=== PATIENT | male | born 1965 | race Caucasian/White ===

== ENCOUNTER 2020-01-18 13:26 | Emergency (ER) | payer OTHER, SELFPAY ==
[2020-01-18 13:30] VITALS: BP 122/96; PULSE 92; RESP 18; TEMP 36.6; O2SAT 99
[2020-01-18 13:57] LABS: Basophils Percent Auto 0.2 % (0.2-1.2); Eosinophils Absolute Auto 0.1 K/mm3 (0-0.3); Eosinophils Percent Auto 2.3 % (0-4.4); Hematocrit 44.3 % (42.0-52.0); Hemoglobin 15.6 g/dL (14.0-18.0); Immature Granulocyte Absolute 0.01 K/mm3 (0.00-0.031); Immature Granulocyte Percent A 0.2 % (0-0.5); Lymphocytes Absolute Auto 1.06 K/mm3 (0.9-3.2); Lymphocytes Percent Auto 24.1 % (18.3-44.2); Mean Corpuscular HGB Conc 35.2 g/dl (32-36); Mean Corpuscular Hemoglobin 31.5 pg (26-34); Mean Corpuscular Volume 89.5 fl (80-100); Mean Platelet Volume 9.3 fl (7.4-10.4); Monocytes Absolute Auto 0.3 K/mm3 (0.1-0.6); Monocytes Percent Auto 7.3 % (2.6-8.5); Neutrophils Absolute Auto 2.9 K/mm3 (1.3-6.7); Neutrophils Percent Auto 65.9 % (45.5-73.1); Platelet Count Result 165 k/mm3 (150-375); Red Blood Count 4.95 M/mm3 (4.6-6.20); Red Cell Distribution Width 12.8 % (11.5-14.5); White Blood Count 4.4 K/mm3 (4.5-10.0)
[2020-01-18 14:09] LABS: Anion Gap 7 mmol/L (8-16); Blood Urea Nitrogen 13 mg/dL (9-20); Calcium 8.7 mg/dL (8.4-10.2); Carbon Dioxide 24 mmol/L (22-30); Chloride 105 mmol/L (98-107); Estimated CRCL calculation 108 ml/min; Estimated Glomerular Filt Rate > 60; Glucose 91 mg/dL (75-110); Potassium 3.7 mmol/L (3.4-5.0); Sodium 136 mmol/L (137-145)
--- NOTE | 2020-01-18 15:48 | ED.GENADULT ---
HPI - General Adult General Chief complaint: Unspecified <Dyllan Oconnell PA-C - Last Filed: 01/18/20 15:51> Stated complaint: multiple complaints <Dyllan Oconnell PA-C - Last Filed: 01/18/20 15:51> Time Seen by Provider: 01/18/20 14:42 <Dyllan Oconnell PA-C - Last Filed: 01/18/20 15:51> Source: patient <Dyllan Oconnell PA-C - Last Filed: 01/18/20 15:51> Mode of arrival: ambulatory <Dyllan Oconnell PA-C - Last Filed: 01/18/20 15:51> Limitations: no limitations <Dyllan Oconnell PA-C - Last Filed: 01/18/20 15:51> History of Present Illness HPI narrative: Patient is a 54-year-old male who presents to emergency department for evaluation fatigue and lack of sleep over the course of the last couple of weeks patient also notes he has been having a tremor. Patient was seen by primary care for this started on anxiety as he is had trouble sleeping and stress related to going through divorce. Patient denies any physical symptoms otherwise at this time and presents per private vehicle in no distress patient denies similar occurrence in the past <Dyllan Oconnell PA-C - Last Filed: 01/18/20 15:51> Related Data Home medications: Home Medications Medication Instructions Recorded Confirmed escitalopram oxalate mg 01/18/20 minocycline 01/18/20 rivaroxaban [Xarelto] mg 01/18/20 <Dyllan Oconnell PA-C - Last Filed: 01/18/20 15:51> Allergies/adverse reactions: Allergies Allergy/AdvReac Type Severity Reaction Status Date / Time No Known Allergies Allergy Verified 01/18/20 14:40 <Dyllan Oconnell PA-C - Last Filed: 01/18/20 15:51> Review of Systems Review of Systems: All systems reviewed & are unremarkable except as noted in HPI and below <Dyllan Oconnell PA-C - Last Filed: 01/18/20 15:51> PMFSH Past Medical History Medical History: Medical History (Updated 01/18/20 @ 15:51 by Dyllan Oconnell PA-C) Pulmonary embolus <OSKAR Abel Last Filed: 01/18/20 15:51> Social History Social History: Social History Smoking status: Former smoker Alcohol intake: never <Dyllan Oconnell PA-C - Last Filed: 01/18/20 15:51> Exam Narrative: Exam Narrative: GENERAL: Well-appearing, well-nourished, and in no acute distress. HEAD: Normocephalic, atraumatic. EYES: PERRLA and EOMI. ENT: Nares clear, no rhinorrhea or epistaxis. Mucous membranes moist. CHEST: Clear to auscultation. No respiratory distress. No wheezes rales or rhonchi HEART: Regular rate and rhythm. No murmur heard. Normal peripheral pulses. ABDOMEN: Soft, nontender, nondistended EXTREMITIES: Normal range of motion. No edema. SKIN: Warm, dry, no rash. NEURO: No focal deficits. Alert and oriented x3. PSYCH: Normal mood and affect. <Dyllan Oconnell PA-C - Last Filed: 01/18/20 15:51> Course Course Emergency Course: Patient in the room in no distress normal vital signs no high risk changes in the blood work advised to continue to follow with primary care patient denies any pain or other complaints felt appropriate for outpatient reevaluation <Dyllan Oconnell PA-C - Last Filed: 01/18/20 15:51> Vital Signs Vital signs: Vital Signs Temperature 97.9 F 01/18/20 13:30 Pulse Rate 92 01/18/20 13:30 Respiratory Rate 18 01/18/20 13:30 Blood Pressure 122/96 H 01/18/20 13:30 Pulse Oximetry 99 01/18/20 13:30 Temperature 97.9 F 01/18/20 13:30 Pulse Rate 76 01/18/20 16:06 Respiratory Rate 14 01/18/20 16:06 Blood Pressure 126/81 01/18/20 16:06 Pulse Oximetry 100 01/18/20 16:06 <Dyllan Oconnell PA-C - Last Filed: 01/18/20 15:51> Vital Signs Temperature 97.9 F 01/18/20 13:30 Pulse Rate 92 01/18/20 13:30 Respiratory Rate 18 01/18/20 13:30 Blood Pressure 122/96 H 01/18/20 13:30 Pulse Oximetry 99 01/18/20 13:30 Temperature 97.9 F
[2020-01-18 16:06] VITALS: BP 126/81; PULSE 76; RESP 14; O2SAT 100
== END 2020-01-18 16:07 | disposition home or self-care (01) ==
PROVIDERS: Emergency Provider General Practice; PCP Internal Medicine
DX: R53.83 Other fatigue (principal)
CPT/HCPCS: 36415; 80048; 85025; 99283

== ENCOUNTER 2021-02-14 10:32 | Outpatient (CLI) | payer OTHER, SELFPAY ==
[2021-02-14 11:06] LABS: Urine Cotinine NEGATIVE
== END 2021-02-14 10:33 | disposition home or self-care (01) ==
LOC: ANHLAB 10:35
PROVIDERS: PCP Internal Medicine; Visit Provider Orthopaedic Surgery
DX: Z72.0 Tobacco use (principal); Z86.711 Personal history of pulmonary embolism
CPT/HCPCS: 80307

== ENCOUNTER 2023-08-08 11:23 | Outpatient (CLI) | payer OTHER, SELFPAY ==
--- NOTE | ~2023-08-08 | XR_ITS ---
EXAM: XR foot LT 2V DATE: 08/08/2023 11:45 HISTORY: M72.2 - Plantar fascial fibromatosis . COMPARISON: None available. FINDINGS: Normal mineralization. No fracture or dislocation. No lytic or blastic lesion. Degenerativ e change at the second DIP joint and first MTP joint. There is minimal plantar enthesopathy. No erosi on or periosteal change. Soft tissues within normal limits. IMPRESSION: No acute osseous finding in the left foot. Minimal plantar enthesopathy. Reviewed, dictated and finalized at location K. IMPRESSION: No acute osseous finding in the left foot. Minimal plantar enthesop athy.
[2023-08-08 12:07] LABS: Hemoglobin 16.2 g/dL (14.0-18.0); Mean Corpuscular HGB Conc 34.5 g/dl (32-36); Mean Corpuscular Hemoglobin 31.4 pg (26-34); Mean Corpuscular Volume 91.1 fl (80-100); Platelet Count Result 134 k/mm3 (150-375); Red Blood Count 5.16 M/mm3 (4.6-6.20); Red Cell Distribution Width 13.2 % (11.5-14.5); White Blood Count 3.9 K/mm3 (4.5-10.0)
[2023-08-08 12:22] LABS: Alanine Aminotransferase 25 U/L (6-50); Albumin Level 4.3 g/dL (3.5-5.1); Alkaline Phosphatase 53 U/L (38-126); Anion Gap 5 mmol/L (8-16); Aspartate Amino Transferase 30 U/L (17-59); Bilirubin,Total 1.2 mg/dL (0.2-1.3); Blood Urea Nitrogen 17 mg/dL (9-20); Calcium 9.1 mg/dL (8.4-10.2); Carbon Dioxide 28 mmol/L (22-30); Chloride 108 mmol/L (98-107); Cholesterol 209 mg/dL (0-200); Estimated Glomerular Filt Rate > 60; Glucose 100 mg/dL (65-110); HDL Direct 44 mg/dL; Potassium 4.3 mmol/L (3.4-5.0); Sodium 141 mmol/L (137-145); Triglycerides 109 mg/dL (<150); Uric Acid 7.9 mg/dL (3.5-8.5)
[2023-08-08 12:34] LABS: LDL Cholesterol Direct 139 mg/dL
[2023-08-08 12:54] LABS: Prostate Specific Antigen 0.6 ng/mL (< OR = 4.0)
== END 2023-08-08 11:24 | disposition home or self-care (01) ==
LOC: ANHLAB 11:24
PROVIDERS: PCP Emergency Medicine; Visit Provider Emergency Medicine
DX: R53.83 Other fatigue (principal); E78.5 Hyperlipidemia, unspecified; E55.9 Vitamin D deficiency, unspecified; M10.9 Gout, unspecified; Z12.5 Encounter for screening for malignant neoplasm of prostate; E03.9 Hypothyroidism, unspecified; M72.2 Plantar fascial fibromatosis
CPT/HCPCS: 36415; 73620; 80053; 80061; 82306; 84153; 84443; 84550; 85027; G0103

== ENCOUNTER 2024-03-01 15:26 | Outpatient (CLI) | payer OTHER, SELFPAY ==
--- NOTE | ~2024-03-01 | XR_ITS ---
Left Hand Technique: PA and lateral views were obtained. Clinical History: Pain Findings: No acute fracture or dislocation is seen. Osseous alignment is anatomic. Joint spaces are p reserved. Soft tissues are unremarkable. Impression: Unremarkable left hand. Reviewed, dictated and finalized at location M. Impression: Unremarkable left hand.
--- NOTE | ~2024-03-01 | XR_ITS ---
Right Hand Technique: PA and lateral views were obtained. Clinical History: Pain Findings: No acute fracture or dislocation is seen. Osseous alignment is anatomic. Joint spaces are p reserved. Soft tissues are unremarkable. Impression: Unremarkable right hand. Reviewed, dictated and finalized at location M. Impression: Unremarkable right hand.
== END 2024-03-01 15:27 | disposition home or self-care (01) ==
PROVIDERS: PCP Emergency Medicine; Visit Provider Emergency Medicine
DX: M79.641 Pain in right hand (principal); M79.642 Pain in left hand
CPT/HCPCS: 73120

== ENCOUNTER 2024-03-16 13:54 | Emergency (ER) | payer OTHER, SELFPAY ==
--- NOTE | ~2024-03-16 | CT_ITS ---
CT brain wo con Ordering provider: Brit Mcmullen III, DO History: 59 years Male with . dizziness . Comparison: None. Technique: CT of the head without contrast. Radiation reduction technique utilized.The dose-length product was 681 mGy-cm. FINDINGS: BRAIN PARENCHYMA AND CSF SPACES: No midline shift, mass effect or hemorrhage. The brain parenchyma a nd CSF spaces are otherwise normal. VISUALIZED PARANASAL SINUSES: Right maxillary and left ethmoid sinus disease. MASTOIDS: Well aerated. BONES: The bones appear intact. SOFT TISSUES: Visualized nasopharynx is normal. Superficial soft tissues are normal. IMPRESSION: No acute intracranial findings. Reviewed, dictated and finalized at location A.
[2024-03-16 13:59] VITALS: BP 127/87; PULSE 88; RESP 16; TEMP 36.6; O2SAT 100
--- NOTE | 2024-03-16 13:59 | ECG_ITS ---
Test Date: 2024-03-16 14:05:23 Measurements Intervals [place] Rate: 79 P: 59 SD: 147 QRS: 42 QRSD: 88 T: 21 QT: 353 QTc: 405 Interpretive Statements SINUS RHYTHM POSSIBLE LEFT ATRIAL ENLARGEMENT [-0.1mV P WAVE IN V1/V2] INCOMPLETE RIGHT BUNDLE BRANCH BLOCK No previous ECG available for comparison Electronically Signed On 03-17-2024 09:35:21 CDT by Salma Choudhury M.D.
--- NOTE | 2024-03-16 14:07 | ED_ITS ---
HPI - Dizziness General Chief Complaint: Dizziness Stated Complaint: dizzy when woke up Time Seen by Provider: 03/16/24 14:22 Pt awoke with dizziness like room spinning at this morning. Pt denies RAI or blurred vision or recent URI. Pt denies ear pain. Pt says is better when still and worse when he moves head. Gen alert and oriented x 3 NAD Heent atraumatic normocephalic N/T clear Neck supple CV RRR without M Lungs CTAB Abd Soft NTND + BS Neuro CN 2-12 intact. Strength 5/5 no sensory def more dizzy with head movement better when still History of Present Illness HPI Narrative: as per MSE above (done by me) Related Data Allergies Allergy/AdvReac Type Severity Reaction Status Date / Time No Known Allergies Allergy Verified 03/01/24 14:55 Review of Systems Review of Systems: All systems reviewed & are unremarkable except as noted in HPI and below PMFSH Past Medical History Medical History Closed dislocation of finger Dislocation closed, finger Fatigue Pulmonary embolus Spleen enlarged Surgical History Surgical History History of total left knee replacement Social History Social History (Updated 03/01/24 @ 15:07 by Jen Hernandez) Smoking status: Former smoker Alcohol intake: current Drinks per week: 21 Alcohol use details: 3 beers per day Substance use: never Do You Feel Safe in your Home?: Yes Lack of Transportation: No Lack of Food: Never True Current Housing: I Have Housing Concerned About Future Housing: No Difficulty Paying Gas/Electric Bills: No Difficulty Paying for Meds: No Currently Unemployed: No Education: Trade/Vocational Certificate Difficulty w/ Childcare or Family Care: No Exam Const: General: healthy appearing and no acute distress Nutritional Appearance: well nourished Orientation/consciousness: patient oriented x3 Limitations: no limitations HENMT: Head: normal to inspection Ears: TM's normal bilaterally Mouth: Yes Normal oral and palatal mucosa present Eyes: Conjunctivae: conjunctivae normal Pupils: Equal, round and reactive pupils present EOM: EOMs intact bilaterally Neck: Neck: normal visual inspection Resp: Effort & Inspection: normal respiratory effort Auscultation: clear to auscultation bilaterally Cardio: Rate: regular rate Rhythm: regular rhythm GI: GI Palp: Yes Soft to palpation and No Tenderness to palpation present (GI) Auscultation: normal bowel sounds Skin: General skin exam: normal color Rashes: no rashes Wounds: no wounds Neuro: General: patient oriented x3, moves all extremities, no meningeal signs, no focal motor deficits and CN's II-XI intact bilaterally Cranial nerves: Yes Nystagmus not present Speech: normal speech Other: dizziness reproduced with movement of head and betteer when still Extrem: General: normal to inspection, no clubbing, cyanosis or edema and no pedal edema Psych: Mental Status: mental status grossly normal Affect: normal affect Attitude: cooperative Course Vital Signs Vital signs: Vital Signs Temperature 98 F 03/16/24 13:59 Pulse Rate 88 03/16/24 13:59 Respiratory Rate 16 03/16/24 13:59 Blood Pressure 127/87 03/16/24 13:59 Pulse Oximetry 100 03/16/24 13:59 Temperature 98.0 F 03/16/24 17:24 Pulse Rate 68 03/16/24 17:24 Respiratory Rate 14 03/16/24 17:24 Blood Pressure 128/84 03/16/24 17:24 Pulse Oximetry 100 03/16/24 17:24 Oxygen Delivery Room Air 03/16/24 15:01 MDM - Dizziness MDM Narrative Medical decision making narrative: seems like vertigo, will get ct and labs to be safe and give some antivert. CT and labs neg. Pt still dizzy after antivert. will give dose of valium. Pt much better now. Got up and walked and says feels better. home on antivert and valium Differential Diagnosis Differential diagnosis: Likely benign paroxysmal positional vertigo, vertebral basilar insufficiency, cerebrovascular accident and acute vestibular neuronitis Lab Data 03/16/24 15:17 03/16/24 15:17 Labs: Lab Results 03/16/24 Range/Units 15:17 WBC 4.3 L (4.5-10.0) K/mm3 RBC 5.09 (4.6-6.20) M/mm3 Hgb 16.4 (14.0-18.0) g/dL Hct 46.8 (42.0-52.0) % MCV 91.9 (80-100) fl MCH 32.2 (26-34) pg MCHC 35.0 (32-36) g/dl RDW 13.0 (11.5-14.5) % Plt Count 129 L (150-375) k/mm3 MPV 8.9 (7.4-10.4) fl Immature Gran % (Auto) 0.2 (0-0.5) % Neut % (Auto) 64.7 (45.5-73.1) % Lymph % (Auto) 20.7 (18.3-44.2) % [place] % (Auto) 9.8 H (2.6-8.5) % Eos % (Auto) 4.4 (0-4.4) % Baso % (Auto) 0.2 (0.2-1.2) % Lymph # (Auto) 0.89 L (0.9-3.2) K/mm3 [place] # (Auto) 0.4 (0.1-0.6) K/mm3 Eos # (Auto) 0.2 (0-0.3) K/mm3 Baso # (Auto) 0.0 (0.0-0.1) K/mm3 Abs Immat Gran (auto) 0.01 (0.00-0.031) K/mm3 Absolute Neuts (auto) 2.8 (1.3-6.7) K/mm3 Absolute Nucleated RBC 0.000 (0.0-0.012) K/mm3 Nucleated RBC % 0.0 (0.0-0.2) % Sodium 137 (137-145) mmol/L Potassium 4.1 (3.4-5.0) mmol/L Chloride 107 (98-107) mmol/L Carbon Dioxide 24 (22-30) mmol/L Anion Gap 6 (4-12) mmol/L BUN 16 (9-20) mg/dL Creatinine 0.90 (0.7-1.3) mg/dL Estim Creat Clear Calc 91 ml/min Estimated GFR > 60 (59 - ) Glucose 100 (65-110) mg/dL Calcium 9.0 (8.4-10.2) mg/dL Total Bilirubin 1.5 H (0.2-1.3) mg/dL AST 30 (17-59) U/L ALT 30 (6-50) U/L Alkaline Phosphatase 53 (38-126) U/L Total Protein 8.0 (6.3-8.2) g/dL Albumin 4.4 (3.5-5.1) g/dL Discharge Plan Discharge Clinical Impression: Vertigo Patient Disposition: Home, Self-Care Condition: Improved Instructions: Antibiotic Form, Vertigo (ED) Prescriptions: New meclizine [Antivert] 50 mg tablet 50 mg PO QID Qty: 30 0RF diazepam [Valium] 5 mg tablet 5 mg PO TID PRN (Reason: vertigo) Qty: 14 0RF No Action Xarelto 20 mg tablet 20 mg PO DAILY Qty: 90 3RF Follow-up/Referrals: Rudolph Sommers MD [Primary Care Provider] - Stand Alone Forms: Work/School Release IP
[2024-03-16 15:01] VITALS: BP 126/86; PULSE 65; RESP 16; TEMP 36.6; O2SAT 98
[2024-03-16] MEDS: MECLIZINE HCL 25 MG TABLET 50 MG PO (15:18)
[2024-03-16 15:23] VITALS: PULSE 63
[2024-03-16 15:26] LABS: Basophils Percent Auto 0.2 % (0.2-1.2); Eosinophils Absolute Auto 0.2 K/mm3 (0-0.3); Eosinophils Percent Auto 4.4 % (0-4.4); Hematocrit 46.8 % (42.0-52.0); Hemoglobin 16.4 g/dL (14.0-18.0); Immature Granulocyte Absolute 0.01 K/mm3 (0.00-0.031); Immature Granulocyte Percent A 0.2 % (0-0.5); Lymphocytes Absolute Auto 0.89 K/mm3 (0.9-3.2); Lymphocytes Percent Auto 20.7 % (18.3-44.2); Mean Corpuscular Hemoglobin 32.2 pg (26-34); Mean Corpuscular Volume 91.9 fl (80-100); Mean Platelet Volume 8.9 fl (7.4-10.4); Monocytes Absolute Auto 0.4 K/mm3 (0.1-0.6); Monocytes Percent Auto 9.8 % (2.6-8.5); Neutrophils Absolute Auto 2.8 K/mm3 (1.3-6.7); Neutrophils Percent Auto 64.7 % (45.5-73.1); Platelet Count Result 129 k/mm3 (150-375); Red Blood Count 5.09 M/mm3 (4.6-6.20); White Blood Count 4.3 K/mm3 (4.5-10.0)
[2024-03-16 15:39] LABS: Alanine Aminotransferase 30 U/L (6-50); Albumin Level 4.4 g/dL (3.5-5.1); Alkaline Phosphatase 53 U/L (38-126); Anion Gap 6 mmol/L (4-12); Aspartate Amino Transferase 30 U/L (17-59); Bilirubin,Total 1.5 mg/dL (0.2-1.3); Blood Urea Nitrogen 16 mg/dL (9-20); Carbon Dioxide 24 mmol/L (22-30); Chloride 107 mmol/L (98-107); Estimated CRCL calculation 91 ml/min; Estimated Glomerular Filt Rate > 60; Glucose 100 mg/dL (65-110); Potassium 4.1 mmol/L (3.4-5.0); Sodium 137 mmol/L (137-145)
[2024-03-16] MEDS: diazePAM (*CRX) 5 MG TABLET PO (16:17)
[2024-03-16 16:18] VITALS: BP 137/86; PULSE 75; RESP 18; TEMP 36.8; O2SAT 100
[2024-03-16 17:24] VITALS: BP 128/84; PULSE 68; RESP 14; TEMP 36.7; O2SAT 100
== END 2024-03-16 17:25 | disposition home or self-care (01) ==
PROVIDERS: Emergency Provider Emergency Medicine; PCP Emergency Medicine
DX: R42 Dizziness and giddiness (principal); Z96.652 Presence of left artificial knee joint; Z86.711 Personal history of pulmonary embolism; Z87.891 Personal history of nicotine dependence; Z79.01 Long term (current) use of anticoagulants; I45.10 Unspecified right bundle-branch block; R94.31 Abnormal electrocardiogram [ECG] [EKG]
CPT/HCPCS: 36415; 70450; 80053; 85025; 93005; 99284; A9270

== ENCOUNTER 2024-07-29 14:49 | Outpatient (RCR) | payer OTHER, SELFPAY ==
--- NOTE | 2024-07-29 15:53 | OTOPEVAL1 ---
Assessment and note entered by Ricky Chopra, FITZ/Rashmi, CHRIS OT Evaluation Information 07/29/24 Assessment Status Evaluation Diagnosis M79.641 Pain in right hand Subjective Information Patient reports right hand pain for about 6-12 months. He is right handed. Reports pain with forceful gripping, unable to open a jar with the right hand. 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 Pain when fingers are pushed into extension. He reports when he has a prolonged chainstitch sewing machine operator on an object he has a difficult time releasing the fingers. 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 He denies any trauma to the hand. X-rays are negative. EMG was negative. Reported Pain Level Pain Score 0: Self Report Additional Pain Score Comments Walking in, 0/10 pain Lumbrical exercise 5/10 Throughout his work day his pain can get up to 9/10 Assessment OT Clinical Summary Patient referred to OT with right hand pain. Signs and symptoms are consistent with intrinsic strain . He denies numbness/tingling. Pain especially with intrinsic muscle activation - lumbricals and interossei. Educated on use of heat, ice, compression, ROM, and activity modification. Continued follow up indicated to progress HEP, continued use of modalities, manual therapy, and therapeutic exercises/activities. Plan of Care Interventions Therapeutic Exercise,Manual Therapy,Therapeutic Activities,Hot Pack/Cold Pack,Ultrasound,Paraffin OT Services Indicated Yes Treatment Frequency and 1x/week for 5 visits Duration These treatments will address the objective and functional deficits as defined above. The patient will be advanced safely and appropriately in order for the patient to progress towards his/her prior level of function. Additional exercises will be introduced and as well as a comprehensive home exercise program upon discharge, if needed, ?to ensure carryover of functional gains achieved in the clinic. This treatment plan has been reviewed and agreement upon by the patient.
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
--- NOTE | 2024-08-04 15:04 | PCOTNOTE ---
Patient did not show up for scheduled appointment this date. Patient was called and message was left on the primary phone.
--- NOTE | 2024-08-23 15:31 | PCOTNOTE ---
Patient No Called No Showed for his 3rd time. Patient was contacted and voicemail was left notifying the patient he will be discharged in accordance with the attendance policy.
--- NOTE | 2024-08-26 10:34 | OTOPDC ---
Assessment and note entered by FITZ Estrada/Rashmi, T Discharge Notification 08/26/24 OT Clinical Summary - Patient referred to OT with right hand pain. Signs and symptoms are consistent with intrinsic strain. He denies numbness/tingling. Pain especially with intrinsic muscle. - Educated on use of heat, ice, compression, ROM, and activity modification. - Patient no showed for 3 consecutive appointments after the initial evaluation and we have been unable to get a hold of him. D/C due to poor attendance.
== END 2024-08-26 11:56 | disposition home or self-care (01) ==
LOC: ANHOT 14:49
PROVIDERS: PCP Emergency Medicine; Visit Provider Emergency Medicine
DX: M79.641 Pain in right hand (principal)
CPT/HCPCS: 97018; 97110; 97165

== ENCOUNTER 2024-10-02 13:05 | Emergency (ER) | payer OTHER, SELFPAY ==
--- NOTE | 2024-10-02 13:07 | ED.BACK ---
HPI - Back Pain/Injury General Chief Complaint: Back Pain/Injury Stated Complaint: Back Pain Time Seen by Provider: 10/02/24 13:18 Source: patient, RN notes reviewed and old records reviewed Mode of arrival: ambulatory Limitations: no limitations History of Present Illness HPI Narrative: 59-year-old male presents to the [facility] with complaints right lower back pain since yesterday. Has tried topicals. Has taken Tylenol. Has a pain patch on. Using crutches to assist with walking. Patient reports yesterday he was mowing his grass on a riding lawnmower, got off to move a chair and his Back went out. Denies any numbness or tingling in extremities. Denies loss retention of bowel or bladder. Denies abdominal pain. No CVA tenderness. Denies midline tenderness Denies any significant injury Related Data Allergies Allergy/AdvReac Type Severity Reaction Status Date / Time No Known Allergies Allergy Verified 10/02/24 13:06 Review of Systems Review of Systems: All systems reviewed & are unremarkable except as noted in HPI and below Constitutional: Constitutional: Reports no additional constitutional complaints ENT: Reports system reviewed and no additional complaints, except as documented Cardiovascular: Cardiovascular: Reports no additional cardiovascular complaints, Denies chest pain and Denies dyspnea Respiratory: Respiratory: Reports no additional respiratory complaints, Denies chest congestion, Denies cough and Denies dyspnea Musculoskeletal: Musculoskeletal: Reports as per HPI and Reports back pain Integumentary/Breasts: Skin/Breast: Reports system reviewed and no additional complaints, except as docu PMFSH Past Medical History Medical History Rosacea Dental abscess Spleen enlarged Dislocation closed, finger Closed dislocation of finger Fatigue Pulmonary embolus Surgical History Surgical History H/O elbow surgery History of total left knee replacement Social History Social History Smoking status: Former smoker Alcohol intake: current Drinks per week: 21 Alcohol use details: 3 beers per day Substance use: never Do You Feel Safe in your Home?: Yes Lack of Transportation: No Lack of Food: Never True Current Housing: I Have Housing Concerned About Future Housing: No Difficulty Paying Gas/Electric Bills: No Difficulty Paying for Meds: No Currently Unemployed: No Education: Trade/Vocational Certificate Difficulty w/ Childcare or Family Care: No Comments At the time of my signature, I reviewed and agree with the nursing past medical, surgical, social, and family history. There is no relevant family history pertinent to the patient complaint. Exam Const: General: cooperative, no acute distress, well developed, alert, uncomfortable and well nourished Nutritional Appearance: well nourished Orientation/consciousness: patient oriented x3 Limitations: no limitations HENMT: Head: normal to inspection Eyes: General: appearance normal, both eyes and all related structures Alignment and Position: alignment normal Neck: Neck: normal visual inspection, full ROM, no lymphadenopathy and no meningeal signs Chest: Chest palpation & inspection: normal inspection of the chest Resp: Effort & Inspection: normal respiratory effort and able to speak in complete sentences Cardio: Rate: regular rate GI: GI Palp: No abdominal tenderness : General: Yes no CVA tenderness Back/Spine/Pelvis: Back: No mass, No erythema, No warmth, No ecchymosis and back tenderness (right lower ) Cervical Spine: normal cervical lordosis, cervical ROM normal, No cervical muscular tenderness and No Cervical spine tenderness Thoracic/Lumbar Spine: thoracic and lumbar spine normal to inspection, paraspinal muscle tenderness on the right in the mid lumbar and in the lower lumbar, No thoracic spinal tenderness and No lumbar spinal tenderness Pelvis: no pain with anterior-posterior compression and no pain with lateral compression Sacroiliac joints: bilaterally nontender Back/spine/pelvis image:  1. reports with pain with movement. NO rash noted. No erythema, ecchymosis. No midline tenderness. No swelling Skin: General skin exam: normal color and no rashes or lesions noted Neuro: General: patient oriented x3, moves all extremities and no meningeal signs Cognition (Neuro): normal cognition Speech: normal speech Gait exam (Neuro): Assistive device used (crutches) Extrem: General: normal to inspection, full ROM and capillary refill normal Psych: Appearance: grossly normal and well kempt Mental Status: mental status grossly normal Speech and movement: Normal speech and movement present and Clear speech present Affect: normal affect Attitude: cooperative Course Course Level of Care: Express Care Visit Vital Signs Vital signs: Vital Signs Temperature 98.4 F 10/02/24 13:16 Pulse Rate 82 10/02/24 13:16 Respiratory Rate 18 10/02/24 13:16 Blood Pressure 129/79 10/02/24 13:16 Pulse Oximetry 100 10/02/24 13:16 Oxygen Delivery Room Air 10/02/24 13:16 Temperature 98.4 F 10/02/24 13:16 Pulse Rate 82 10/02/24 13:16 Respiratory Rate 18 10/02/24 13:16 Blood Pressure 129/79 10/02/24 13:16 Pulse Oximetry 100 10/02/24 13:16 Oxygen Delivery Room Air 10/02/24 13:16 Reviewed MDM - Back Pain/Injury MDM Narrative Medical decision making narrative: Patient standing in exam room. Patient reports right lower back pain since yesterday. Denies any red flag symptoms. Exam consistent with lumbar strain. No trauma. Discussed prescribing prednisone, patient declined at this time. Does not want to take a steroid. Patient appropriate for outpatient treatment with close follow-up. Discussed signs and symptoms to proceed to the emergency room in the importance of following up with primary care provider Discharge instructions reviewed with patient, as well as provided in writing per nursing staff. The instructions also include specific and strict return/GO TO THE ER as well as f/u information. All questions have been answered, and the patient deny any further questions with discharge and discharge plan. Some parts of this dictation were generated by voice recognition software and may contain typographical and/or grammatical inaccuracies. Differential Diagnosis Differential diagnosis: Likely lumbar radiculopathy, sciatica and strain of lumbar region Critical Care Time Critical Care Time Critical Care Time: No Discharge Plan Discharge Clinical Impression: Right lumbar pain Patient Disposition: Home Condition: Stable Instructions: Low Back Strain (ED), Acute Low Back Pain (ED), Lower Back Exercises (ED) Additional Instructions: Take Tylenol as needed for pain Take Baclofen (muscle relaxer) as directed. Do not drink, drive, operate machinery, or do anything dangerous while taking this medication Exercise:Combine aerobic exercise, like walking or swimming, with specific exercises to keep the muscles in your back and abdomen strong and flexible. Proper Lifting:Be sure to lift heavy items with your legs, not your back. Do not bend over to pick something up. Keep your back straight and bend at your knees. Weight:Maintain a healthy weight. Being overweight puts added stress on your lower back. Avoid Smoking:Both the smoke and the nicotine cause your spine to age faster than normal. Proper Posture:Good posture is important for avoiding future problems. A therapist can teach you how to safely stand, sit, and lift. Use warm moist heat to help with pain. Using topical such as Biofreeze, Kojo-Jean or Aspercreme can also help Follow up with Primary provider in 2-3 days, This may become a chronic condition and they will be the one to help manage your pain and order additional testing. Go to the nearest ER if you develop problems with bladder/bowel function, weakness or loss of feeling in one or both of your legs. Patient Language: Lithuanian Prescriptions: New baclofen 10 mg tablet 10 mg PO TID PRN (Reason: muscle pain) Qty: 15 0RF lidocaine [Lidoderm] 5 % adhesive patch,medicated 1 patch topical DAILY Qty: 15 0RF Rx Instructions: leave on most painful area for up to 12 hrs No Action Xarelto 20 mg tablet See Rx Instructions .ROUTE .COMPLEX Qty: 90 2RF Dose Instruction: Take 1 tablet by mouth once daily Rx Instructions: Take 1 tablet by mouth once daily Follow-up/Referrals: Rudolph Sommers MD [Primary Care Provider] - 1 Week (express care follow up ) Stand Alone Forms: Work/School Release IP Time of Disposition: 13:27
[2024-10-02 13:16] VITALS: BP 129/79; PULSE 82; RESP 18; TEMP 36.9; O2SAT 100
== END 2024-10-02 13:30 | disposition home or self-care (01) ==
PROVIDERS: Emergency Provider Nurse Practitioner; PCP Emergency Medicine
DX: M54.50 Low back pain, unspecified (principal); L71.9 Rosacea, unspecified; Z86.711 Personal history of pulmonary embolism; Z96.652 Presence of left artificial knee joint; Z87.891 Personal history of nicotine dependence
CPT/HCPCS: 99213; G0463

== ENCOUNTER 2024-10-23 18:45 | Emergency (ER) | payer OTHER, SELFPAY ==
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
--- OUTSIDE RECORDS SUMMARY | 2024-10-23 18:47 | XMS_ITS | Encounter Summary ---
Author Organization [facility] Address [address] [place] [address] Care Team Providers Care Senior Mechanical Project Engineer Name Role Phone Unavailable Primary Care Provider Unavailabl e Encounter Details Date Type Department Care Team (Late st Contact Info) Description 01/31/2022 Lab Requisition [facility] [address] [id number] Jewel Schwab MD [address] [place] [address] Social History Tobacco Use Types Packs/Day Years Used Date Smoking Tobacco: Never Assessed Sex and Gender Information Value Date Recorded Sex Assigned at Not on file Legal Sex Male 11:48 AM CDT Gender Identity Not on file Sexual Orientation Not on file documented as of this encounter Plan of Treatment Not on file documented as of this encounter Procedures Procedure Name Priority Date/Time Associated Diagnosis Comments DERMATOPATHOLOGY Routine 01/30/2022 12:0 0 AM CDT documented in this encounter Results * DERMATOPATHOLOGY (01/30/2022 12:00 AM CDT) Case Report Dermatopathology Report Case: [id number] Authorizing Provider: Jewel Schwab MD Collected: 01/30/2022 12:00 AM Ordering Location: [facility] Received: 01/31/2022 11:58 AM Pathologist: Raegan Shrestha MD Specimen: Skin, right sup helix 2 5:33 PM CDT DERMATOPATHOLOGY LABORATORY Final Diagnosis Specimen A. 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 Check margins 2 5:33 PM CDT DERMATOPATHOLOGY LABORATORY Gross Description Specimen A: Received is one formalin filled container labeled with the patient's name and designated right sup helix. The specimen consists of a shave biopsy measuring 8x4x1,5x4x1, and 4x3x1 mm. Jar 0. 2 5:33 PM CDT DERMATOPATHOLOGY LABORATORY Microscopic Description Specimen A. SKIN, right sup helix: Sections show an acanthotic lesion composed of relatively uniform keratinocytes. There is hyperkeratosis and pseudo horn cysts. Pigment is present in the keratinocytes composing this tumor. This lesion is present at the margin of the specimen. 2 5:33 PM CDT DERMATOPATHOLOGY LABORATORY Disclaimer An external and internal positive and negative controls are appropriate for the histochemical, immunohistochemical and immunofluorescence stain(s) in this case (if any), except where stated explicitly. The performance characteristics of the stain(s) cited in this report were developed and its performance characteristic determined by the Dermatopathology Laboratory at [facility], directed by Dr. Ce Limon. These tests need not be, and therefore are not, approved by the [place] Food and Drug Administration. The tests are used for clinical purposes. Billing Codes Specimen Charges Stain Charges 88741 1 2 5:33 PM CDT DERMATOPATHOLOGY LABORATORY Embedded Images 2 5:33 PM CDT DERMATOPATHOLOGY LABORATORY Pathology/Cytolog y TISSUE SPECIMEN FROM SKIN / Unknown 01/30/2022 01/31/2022 11:58 AM CDT us Jewel Schwab MD LAB - PATHOLOGY/CYTOLOGY ORDERAB LES Final Result DERMATOPATHOLOGY LABORATORY [facility] - Department of Dermatology [address] [place] [address], [facility] [phone] documented in this encounter Visit Diagnoses Not on filedocumented in this encounter
--- OUTSIDE RECORDS SUMMARY | 2024-10-23 18:47 | XMS_ITS | Referral Summary ---
Author Organization [facility] Address [address] [place] [address] Care Team Providers Care Auto Finance Sales Rep Name Role Phone Eliu Garcia MD Primary Care Provider [phone] Cy Landaverde MD Unavailable [phone] Frederic Smith MD Unavailable [phone] Allergies No known active allergies Medications rivaroxaban (XARELTO) tablet take 1 tablet by oral route every day with the evening meal 0 0 6 Active rivaroxaban (XARELTO) 20 mg tablet Take 1 tablet (20 mg total) by mouth daily. 30 tablet 11 8 Active amoxicillin 500 mg capsule TAKE 1 CAPSULE BY MOUTH EVERY 8 HOURS 1 Active minocycline (MINOCIN,DYNACI N) 100 mg capsule minocycline 100 mg capsule TAKE 1 CAPSULE BY MOUTH EVERY 12 HOURS Active Active Problems Problem Noted Date Diagnosed Date Other pulmonary embolism without acute cor pulmo nale 10/24/2020 Social History Tobacco Use Types Packs/Day Years Used Date Smoking Tobacco: Former Cigarettes - 2014 Smokeless Tobacco: Former Chew Alcohol Use Standard Drinks/Week Comments Yes 0 (1 standard drink = 0.6 oz pur e alcohol) 3 beers anchichi, quit 10/2016 AUDIT-C Answer Date Recorded Q1: How often do you have a drink containing alcohol? 4 or more times a week 02/11/2021 Q2: How many drinks containi ng alcohol do you have on a typical day when you are drinking? 1 or 2 Q3: How often do you have si x or more drinks on one occasion? 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 Gender Identity Male 11/01/2020 1:51 PM CDT Sexual Orientation Not on file Last Filed Vital Signs Vital Sign Reading Time Taken Comments Blood Pressure 105/72 02/11/2021 11:52 AM CDT Pulse 72 02/11/2021 11:52 AM CDT Temperature 37.3 C (99.2 F) 02/11/2021 11:52 AM CDT Respiratory Rate 16 02/11/2021 11:5 2 AM CDT Oxygen Saturation 98% 02/11/2021 11: 52 AM CDT Inhaled Oxygen Concentration - - Weight 102.4 kg (225 lb 12.8 oz) 2020 11:52 AM CDT Height 185.4 cm (6' 1) 02/11/2021 11:5 2 AM CDT Body Mass Index 29.79 02/11/2021 11:52 AM CDT Plan of Treatment Not on file Insurance PPO Member Subscriber Plan / Payer (Ef fective 2017-Present) Name:Bony Asif Relation to Subscriber:Self Name:Bony Asif Payer ID:[id number] ([facility]) Group ID:[id number] [facility] Address: [facility] [id number] [address] [facility] PPO Member Subscriber Plan / Payer (Ef fective 2017-Present) Name:Bony Asif Relation to Subscriber:Self Name:Bony Asif Payer ID:[id number] ([employer]) Group ID:[id number] Type:Friendfer HMO/PPO Address: [facility] [id number] [place] [address] [address] [id number] Care Teams Auto Finance Sales Rep Relationship Specialty Start Date End Date Eliu Garcia MD PCP - General 08/22/16 Cy Landaverde MD [address] [place] [address] Referring Physician Orthopedic Surgery 10/17/20 Frederic Smith MD [address] [place] [address] Consulting Physician Hematology and Oncology 12/18/20
--- OUTSIDE RECORDS SUMMARY | 2024-10-23 18:47 | XMS_ITS | Encounter Summary ---
Author Organization [facility] Address [address] [place] [address] Phone Care Team Providers Care Tube Inspector Name Role Phone Rudolph Sommers MD Primary Care Provider [phone] Reason for Referral * Other (Routine) - Closed Specialty Diagnoses / Procedures Referred By Nida camarena Referred To Contact Neurology Diagnoses Pain in right hand Pain in left hand Procedures EMG 2 EXTREMITY W/WO RELATED PARASPINAL Rudolph Sommers MD [address] [place] [address] Phone: tel: fax: Referral ID Status Reason Start Date Expiration Date Visits Re quested Visits Authorized [id number] Closed 03/08/2024 1 1 Encounter Details Date Type Department Care Team (Late st Contact Info) Description 03/08/2024 Telephone [facility] Central Scheduling 1 [place] [id number] Rudolph Sommers MD [address] [place] [address] Social History Tobacco Use Types Packs/Day Years Used Date Smoking Tobacco: Never Assessed Sex and Gender Information Value Date Recorded Sex Assigned at Not on file Legal Sex Male 2:50 PM CDT Gender Identity Not on file Sexual Orientation Not on file documented as of this encounter Plan of Treatment Not on file documented as of this encounter Results * EMG 2 EXTREMITY W/WO RELATED PARASPINAL (03/09/2024 12:00 AM CDT) 03/09/2024 us Rudolph Sommers MD NEUROLOGY ORDERABLES Final Res ult SCAN documented in this encounter Visit Diagnoses Diagnosis Pain in right hand- Primary Pain in left hand documented in this encounter Care Teams Tube Inspector Relationship Specialty Start Date End Date Rudolph Sommers MD [address] [place] [address] PCP - General Internal Medicine 03/08/24 documented as of this encounter
--- OUTSIDE RECORDS SUMMARY | 2024-10-23 18:47 | XMS_ITS | Encounter Summary ---
Author Organization [facility] Address [address] [facility] [place] [address] Phone Care Team Providers Care Testing Specialist Name Role Phone Rudolph Sommers MD Primary Care Provider [phone] Encounter Details Date Type Department Care Team (Late st Contact Info) Description 03/07/2024 Transcribe Orders [facility] Central Scheduling [address] [place] [address] Rudolph Sommers MD [address] [place] [address] Social History Tobacco Use Types Packs/Day Years Used Date Smoking Tobacco: Never Assessed Sex and Gender Information Value Date Recorded Sex Assigned at Not on file Legal Sex Male 2:50 PM CDT Gender Identity Not on file Sexual Orientation Not on file documented as of this encounter Plan of Treatment Not on file documented as of this encounter Visit Diagnoses Not on filedocumented in this encounter Care Teams Testing Specialist Relationship Specialty Start Date End Date Rudolph Sommers MD [address] [place] [address] PCP - General Internal Medicine 03/08/24 documented as of this encounter
--- OUTSIDE RECORDS SUMMARY | 2024-10-23 18:47 | XMS_ITS | Clinical Summary ---
Author Organization [facility] Address [address] [facility] [place] [address] Care Team Providers Care Manager Investment Banking Name Role Phone Rudolph Sommers MD Primary Care Provider [phone] Social History Tobacco Use Types Packs/Day Years Used Date Smoking Tobacco: Never Assessed Sex and Gender Information Value Date Recorded Sex Assigned at Not on file Legal Sex Male 2:50 PM CDT Gender Identity Not on file Sexual Orientation Not on file Plan of Treatment Health Maintenance Due Date Last Done Comments Hepatitis C Virus (HCV) Screening 1966 TdaP Immunization 1966 Hepatitis B Immunization (1 of 3 - 19+ 3-dose series) 1985 Colonoscopy 2011 Colorectal Cancer Screening 2011 Cologuard 2016 Immunochemical Fecal Occult Blood 2016 Pneumococcal Immunization (5 0+ years) (1 of 1 - PCV) 2016 Zoster Immunization (1 of 2) 2016 PSA Discussion 2021 Influenza Immunization (#1) 2024 SARS-COV-2 Immunization ( season) 2024 Respiratory Syncytial Virus (RSV) Immunization (Adult) (1 - 1-dose 75+ series) 2041 Meningococcal Immunization (ACWY) Aged Out No longer eligible based on patient's age to complete this topic Rotavirus Immunization Aged Out No lo nger eligible based on patient's age to complete this topic Insurance [employer] Care Teams Manager Investment Banking Relationship Specialty Start Date End Date Rudolph Sommers MD [address] [facility] [address] [place] [address] PCP - General Internal Medicine 03/08/24
--- OUTSIDE RECORDS SUMMARY | 2024-10-23 18:47 | XMS_ITS | Clinical Summary ---
Author Organization [facility] Address [address] [place] [address] Care Team Providers Care Musculoskeletal Physiotherapist Name Role Phone Unavailable Primary Care Provider Unavailabl e Source Comments [facility] [employer],non-owned Affiliates and Associated Physician Practices is amultiple site organization consisting of ambulatory clinics and hospital sitesin [place], [place], [place] and [place]. This disclosure is being madepursuant to the Care Everywhere program and may not contain all information available regarding this patient. Last updated 18.[facility] [employer] Social History Tobacco Use Types Packs/Day Years Used Date Smoking Tobacco: Never Assessed Sex and Gender Information Value Date Recorded Sex Assigned at Not on file Legal Sex Male 11:48 AM CDT Gender Identity Not on file Sexual Orientation Not on file Plan of Treatment Health Maintenance Due Date Last Done Comments COLOGUARD (AGES 45-75) - COL ON CA SCREENING 1966 COLON MONITORING 1966 COLONOSCOPY - COLON CA SCREENING 1966 CT COLONOGRAPHY - COLON CA SCREENING 1966 Colorectal Cancer Screening 1966 FIT - COLON CA SCREENING 1966 FLEX SIG - COLON CA SCREENING 1966 LIPID TESTING 1966 HIV SCREENING 1981 HEPATITIS C SCREENING 03/07/1984 DTAP/TDAP/TD VACCINES (1 - Tdap) 1985 HEPATITIS B VACCINE (1 of 3 - 19+ 3-dose series) 1985 PNEUMOCOCCAL VACCINE 50+ (1 of 1 - PCV) 2016 ZOSTER VACCINE (1 of 2) 2016 COVID-19 VACCINE (1 - 2023-2 5 season) 2024 DEPRESSION SCREENING 05/25/2024 INFLUENZA VACCINE (Season Ended) 2025 HIB VACCINE Aged Out No longer eligi ble based on patient's age to complete this topic HPV VACCINE Aged Out No longer eligi ble based on patient's age to complete this topic MENINGOCOCCAL (Group B) VACC INE SHARED DECISION-MAKING Aged Out No longer eligibl e based on patient's age to complete this topic MENINGOCOCCAL GROUPS A/C/Y/W VACCINE Aged Out No longer eligible b ased on patient's age to complete this topic Insurance Member Subscriber Plan / Payer (Ef fective 2017-Present) Name:Bony Rodriguez Relation to Subscriber:Self Name:BONY RODRIGUEZ Payer ID:[id number] ([employer]) Group ID:[id number] Type:Commercial Address: [facility] [address] [place] [address]
--- OUTSIDE RECORDS SUMMARY | 2024-10-23 18:47 | XMS_ITS | CONTINUITY OF CARE DOCUMENT ---
Author Name doni marion Address Unknown Organization [facility] Address [address] [place] [address] [address] [place] [address] Phone [phone] Care Team Providers Care Crimp Setter Name Role Phone Mary CRUZ, Vijay Floyd Unavailable [phone] TANYA HAN MD Unavailable TANYA HAN MD Unavailable [phone]
--- OUTSIDE RECORDS SUMMARY | 2024-10-23 18:47 | XMS_ITS | Clinical Summary ---
Author Organization [facility] Address [address] [place] [address] Care Team Providers Care Presiding Judge Name Role Phone Eliu Garcia MD Primary Care Provider [phone] Cy Landaverde MD Unavailable [phone] Frederic Smith MD Unavailable [phone] Allergies No known active allergies Medications [...] embolism without acute cor pulmo nale 10/24/2020 Surgical History Surgery Date Site/Laterality Comments KNEE ARTHROSCOPY 05/25/2013 - 05/24/2014 Left ABDOMINAL WALL SURGERY 05/25/1985 - 05/24/1986 fatty lesion resection COLONOSCOPY Medical History Medical History Date Comments Pulmonary emboli (HCC) 09/28/2014 Elbow fracture, left 1994 Family History Medical History Relation Name Comments Lung cancer Brother Brain cancer Father Lung cancer Father Relation Name Status Comments Brother Father Mother Alive Social History Tobacco Use Types Packs/Day Years Used Date Smoking Tobacco: Former Cigarettes - 2014 Smokeless Tobacco: Former Chew Alcohol Use Standard Drinks/Week Comments Yes 0 (1 standard drink = 0.6 oz pur e alcohol) 3 beers anight, quit 10/2016 AUDIT-C Answer Date Recorded Q1: [...] on file 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 Gender Identity Male 11/01/2020 1:51 PM CDT Sexual Orientation Not on file Obstetrics History Last Filed Vital Signs Vital Sign Reading [...] Plan of Treatment Not on file [facility] Member Subscriber Plan / Payer (Ef fective 2017-Present) Name:Bony Asif Relation to Subscriber:Self Name:Bony Asif Payer ID:[id number] ([facility]) Group ID:[id number] Type:CIGNA HMO/PPO Address: [address] [place] [address] HEALTHCARE PPO Member Subscriber Plan / Payer (Ef fective 2017-Present) Name:Bony Asif Relation to Subscriber:Self Name:Bony Asif Payer ID:[id number] (NA) Group ID:[id number] Type:CIGNA HMO/PPO Address: [address] [place] [address] Care Teams Presiding Judge Relationship Specialty Start Date End Date Eliu Garcia MD PCP - General 08/22/16 Cy Landaverde MD [address] [place] [address] Referring Physician Orthopedic Surgery 10/17/20 Frederic Smith MD [address] [place] [address] Consulting Physician Hematology and Oncology 12/18/20
--- OUTSIDE RECORDS SUMMARY | 2024-10-23 18:47 | XMS_ITS | Encounter Summary ---
Author Organization [facility] Address [address] [place] [address] Phone Care Team Providers Care Railroad Detective Name Role Phone Eliu Garcia MD Primary Care Provider Cy Landaverde MD Unavailable [phone] Frederic Smith MD Unavailable [phone] Encounter Details Date Type Department Care Team (Late st Contact Info) Description 06/04/2017 Orders Only [facility] ProviderTc MD [facility] [place] [address] Social History Tobacco Use Types Packs/Day Years Used Date Smoking Tobacco: Former Cigarettes - 2014 Smokeless Tobacco: Current Alcohol Use Standard Drinks/Week Comments Yes 0 (1 standard drink = 0.6 oz pur e alcohol) 3 beers anight, quit 10/2016 Sex and Gender Information Value Date Recorded Sex Assigned at Not on file Legal Sex Male 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 us Historical Provider LAB BLOOD ORDERABLES Yohana l Result documented in this encounter Visit Diagnoses Not on filedocumented in this encounter Care Teams Railroad Detective Relationship Specialty Start Date End Date Eliu Garcia MD PCP - General 08/22/16 Cy Landaverde MD [address] [place] [address] Referring Physician Orthopedic Surgery 10/17/20 Frederic Smith MD [address] [place] [address] Consulting Physician Hematology and Oncology 12/18/20 documented as of this encounter
[2024-10-23 18:54] VITALS: BP 117/80; PULSE 93; RESP 18; TEMP 37.2; O2SAT 98
[2024-10-23 20:16] VITALS: BP 133/94; PULSE 86; RESP 19; O2SAT 98
--- OUTSIDE RECORDS SUMMARY | 2024-10-23 20:51 | XMS_ITS | Encounter Summary ---
Author Organization [facility] Address [address] [place] [address] Phone Care Team Providers Care Soft Water Mechanic Name Role Phone Rudolph Sommers MD Primary Care Provider [phone] Reason for Referral * Other (Routine) - Closed Specialty Diagnoses / Procedures Referred By Nida camarena Referred To Contact Neurology Diagnoses Pain in right hand Pain in left hand Procedures EMG 2 EXTREMITY W/WO RELATED PARASPINAL Rudolph Sommers MD [address] [place] [address] Phone: tel: fax: Referral ID Status Reason Start Date Expiration Date Visits Re quested Visits Authorized [id number] Closed 03/08/2024 1 1 Encounter Details Date Type Department Care Team (Late st Contact Info) Description 03/08/2024 Telephone [facility] Central Scheduling 1 [place] [id number] Rudolph Sommers MD [address] [place] [address] Social History Tobacco Use Types [...] hand documented in this encounter Care Teams Soft Water Mechanic Relationship Specialty Start Date End Date Rudolph Sommers MD [address] [place] [address] PCP - General Internal Medicine 03/08/24 documented as of this encounter
--- OUTSIDE RECORDS SUMMARY | 2024-10-23 20:51 | XMS_ITS | Clinical Summary ---
Author Organization [facility] Address [address] [place] [address] Care Team Providers Care Concrete Pourer Name Role Phone Unavailable Primary Care Provider Unavailabl e Source Comments [facility] [employer],non-owned Affiliates and Associated Physician Practices is amultiple site organization consisting of ambulatory clinics and hospital sitesin [place], [place], [place] and [place]. This disclosure is being madepursuant to the Care Everywhere program and may not contain all information available regarding this patient. Last updated 18.[facility] [employer] [facility] [employer] Social History Tobacco Use Types Packs/Day Years [...] Payer ID:[id number] ([employer]) Group ID:[id number] Type:Commercial Address: [facility] [id number] [place] [address]
--- OUTSIDE RECORDS SUMMARY | 2024-10-23 20:51 | XMS_ITS | Encounter Summary ---
Author Organization [facility] Address [address] [facility] [place] [address] Phone Care Team Providers Care Clothing Worker Name Role Phone Rudolph Sommers MD Primary Care Provider [phone] Encounter Details Date Type Department Care Team (Late st Contact Info) Description 03/07/2024 Transcribe Orders [facility] Central Scheduling 1 [place] [address] Rudolph Sommers MD [address] [place] [address] Social History Tobacco Use Types Packs/Day Years [...] on filedocumented in this encounter Care Teams Clothing Worker Relationship Specialty Start Date End Date Rudolph Sommers MD [address] [place] [address] PCP - General Internal Medicine 03/08/24 documented as of this encounter
--- OUTSIDE RECORDS SUMMARY | 2024-10-23 20:51 | XMS_ITS | Encounter Summary ---
Author Organization [facility] Address [address] [place] [address] Phone Care Team Providers Care Requirements Analyst Name Role Phone Eliu Garcia MD Primary Care Provider Cy Landaverde MD Unavailable [phone] Frederic Smith MD Unavailable [phone] Encounter Details Date Type Department Care Team (Late st Contact Info) Description 06/04/2017 Orders Only [facility] ProviderTc MD [facility] [place] [address] Social History Tobacco Use Types Packs/Day Years Used Date Smoking Tobacco: Former Cigarettes - 2014 Smokeless Tobacco: Current Alcohol Use Standard Drinks/Week Comments Yes 0 (1 standard drink = 0.6 oz pur e alcohol) 3 beers anight, quit 10/2016 Sex and Gender Information Value Date Recorded Sex Assigned at Not on file Legal Sex Male 3:41 AM RIB PULLER Gender Identity Male 11/01/2020 1:51 PM CDT Sexual Orientation Not on file documented as of this encounter Plan of Treatment Not on file documented as of this encounter Procedures Procedure Name Priority Date/Time Associated Diagnosis Comments DISCHARGE LABORATORY CUMULATIVE REPORT 06/04/2017 12:00 AM RIB PULLER documented in this encounter Results * DISCHARGE LABORATORY CUMULATIVE REPORT (06/04/2017 12:00 AM RIB PULLER) Narrative 06/04/2017 12:00 AM RIB PULLER Ordered by an unspecified provider. us Historical Provider LAB BLOOD ORDERABLES Yohana l Result documented in this encounter Visit Diagnoses Not on filedocumented in this encounter Care Teams Requirements Analyst Relationship Specialty Start Date End Date Eliu Garcia MD PCP - General 08/22/16 Cy Landaverde MD [address] [place] [address] Referring Physician Orthopedic Surgery 10/17/20 Frederic Smith MD [address] [place] [address] Consulting Physician Hematology and Oncology 12/18/20 documented as of this encounter
--- OUTSIDE RECORDS SUMMARY | 2024-10-23 20:51 | XMS_ITS | Clinical Summary ---
Author Organization [facility] Address [address] [facility] [place] [address] Care Team Providers Care Electronics Detail Draftsperson Name Role Phone Rudolph Sommers MD Primary Care Provider [phone] Social History Tobacco Use Types Packs/Day Years [...] complete this topic Insurance [employer] Care Teams Electronics Detail Draftsperson Relationship Specialty Start Date End Date Rudolph Sommers MD [address] [facility] [address] [place] [address] PCP - General Internal Medicine 03/08/24
--- OUTSIDE RECORDS SUMMARY | 2024-10-23 20:51 | XMS_ITS | CONTINUITY OF CARE DOCUMENT ---
Author Name doni marion Address Unknown Organization [facility] Address [address] [place] [address] [address] [place] [address] Phone [phone] Care Team Providers Care Spa Associate Name Role Phone Mary CRUZ, Vijay Floyd Unavailable [phone] TANYA HAN MD Unavailable TANYA HAN MD Unavailable [phone]
--- OUTSIDE RECORDS SUMMARY | 2024-10-23 20:51 | XMS_ITS | Referral Summary ---
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 Gender Identity Male 11/01/2020 1:51 PM CDT [...] Relation to Subscriber:Self Name:Bony Asif Payer ID:[id number] ([facility]) Group ID:[id number] Type:[email or web address] Address: [facility] [id number] [id number] [facility] PPO Member Subscriber Plan / Payer (Ef fective 2017-Present) Name:Bony Asif Relation to Subscriber:Self Name:Bony Asif Payer ID:[id number] ([facility]) Group ID:[id number] Type:Urgent Group HMO/PPO Address: [facility] [address] [place] [address] [id number] Care Teams Segmental Wall Installer Relationship Specialty Start Date End Date Eliu Garcia MD PCP - General 08/22/16 Cy Landaverde MD [address] [place] [address] Referring Physician Orthopedic Surgery 10/17/20 Frederic Smith MD [address] [place] [address] Consulting Physician Hematology and Oncology 12/18/20
--- OUTSIDE RECORDS SUMMARY | 2024-10-23 20:51 | XMS_ITS | Clinical Summary ---
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 Gender Identity Male 11/01/2020 1:51 PM CDT [...] Plan of Treatment Not on file Insurance [facility] Member Subscriber Plan / Payer (Ef fective 2017-Present) Name:Bony Asif Relation to Subscriber:Self Name:Bony Asif Payer ID:[id number] ([facility]) Group ID:[id number] Type:[employer] HMO/PPO Address: [address] [place] [address] HEALTHCARE PPO Member Subscriber Plan / Payer (Ef fective 2017-Present) Name:Bony Asif Relation to Subscriber:Self Name:Bony Asif Payer ID:[id number] (NA) Group ID:[id number] Type:[employer] HMO/PPO Address: [address] [place] [address] Care Teams Building Cleaning Supervisor Relationship Specialty Start Date End Date Eliu Garcia MD PCP - General 08/22/16 Cy Landaverde MD [address] [place] [address] Referring Physician Orthopedic Surgery 10/17/20 Frederic Smith MD [address] [place] [address] Consulting Physician Hematology and Oncology 12/18/20
--- OUTSIDE RECORDS SUMMARY | 2024-10-23 20:51 | XMS_ITS | Encounter Summary ---
Author Organization [facility] Address [address] [facility] [place] [address] Care Team Providers Care Range Examiner Name Role Phone Unavailable Primary Care Provider Unavailabl e Encounter Details Date Type Department Care Team (Late st Contact Info) Description 01/31/2022 Lab Requisition [facility] [address] [facility] [place] [id number] Jewel Schwab MD [address] [place] [address] Social History Tobacco Use Types [...] AM CDT) Case Report Dermatopathology Report Case: [id number] Authorizing Provider: Jewel Schwab MD Collected: 01/30/2022 12:00 AM Ordering Location: [facility] Received: 01/31/2022 11:58 AM [...] characteristic determined by the Dermatopathology Laboratory at [facility], directed by Dr. Ce Limon. These tests need not be, and therefore are not, approved by the [place] Food and Drug Administration. The tests are used for clinical purposes. Billing Codes Specimen Charges Stain Charges 71040 1 2 5:33 PM CDT DERMATOPATHOLOGY LABORATORY Embedded Images 2 5:33 PM CDT DERMATOPATHOLOGY LABORATORY Pathology/Cytolog y TISSUE SPECIMEN FROM SKIN / Unknown 01/30/2022 01/31/2022 11:58 AM CDT us Jewel Schwab MD LAB - PATHOLOGY/CYTOLOGY ORDERAB LES Final Result DERMATOPATHOLOGY LABORATORY [facility] - Department of Dermatology [address] [place] [address], [facility] [phone] documented in this encounter Visit Diagnoses Not on filedocumented in this encounter
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
[2024-10-23] MEDS: HYDROcodone/acetaminophen (*CRX) 5-325 MG TABLET 1 TAB PO (21:44)
== END 2024-10-23 22:43 | disposition home or self-care (01) ==
PROVIDERS: Emergency Provider Student in an Organized Health Care Education/Training Program; PCP Emergency Medicine
DX: M54.2 Cervicalgia (principal); M54.9 Dorsalgia, unspecified; Z79.01 Long term (current) use of anticoagulants; Z86.711 Personal history of pulmonary embolism; V43.52XA Car driver injured in collision with other type car in traffic accident, initial encounter
CPT/HCPCS: 70450; 72125; 99284; A9270